=== PATIENT | male | born 1940 ===

== ENCOUNTER 2016-07-25 14:15 | Emergency (ER) | payer MEDICARE, OTHER ==
[2016-07-25 13:36] LABS: URINE BILIRUBIN NEGATIVE (NEG); URINE BLOOD NEGATIVE (NEG); URINE GLUCOSE (UA) NEGATIVE (NEG); URINE KETONE NEGATIVE (NEG); URINE LEUKOCYTE ESTERASE NEGATIVE (NEG); URINE NITRITE NEGATIVE (NEG); URINE PROTEIN NEGATIVE (NEG)
[2016-07-25 13:37] LABS: URINE APPEARANCE CLEAR; URINE COLOR YELLOW
[2016-07-25 13:42] LABS: URINE EPITHELIAL CELLS 0-2 /[HPF] (0-10); URINE RBC 0-3 /[HPF] (0-5); URINE WBC 0-1 /[HPF] (0-5)
[~2016-07-25 14:15] MED LIST: ALPRAZOLAM0.25 M3 PO; AMLODIPINE-BEN1 EAC6 PO; ARICEPT5 M1 PO; CYMBALTA60 M1 PO; DULCOLAX STOOL100 M1 PO; FLUOXETINE HCL10 M1 PO; GABAPENTIN300 M1 PO; HYDROCHLOROTH12.5 M3 PO; LOTREL 5-20 MG1 EACH PO; MICROZIDE12.5 M1 PO; NEURONTIN300 M1 PO; OMEPRAZOLE20 M3 PO; PRAVACHOL40 M1 PO; PRAVASTATIN SOD20 M1 PO; REFRESH P.M. O3.5 G2 OP; RYTARY ER 48.71 EACH PO; SINEMET 25-1001 EAC1 PO; TRAMADOL HCL50 M2 PO; ULTRAM50 M1 PO; VITAMIN B12; VITAMIN D31000 UNI3 PO; ZOFRAN
== END 2016-07-25 14:30 ==
LOC: EDMED 14:15
PROVIDERS: Physician Assistant
DX: M54.5 Low back pain (principal); K59.00 Constipation, unspecified; I10 Essential (primary) hypertension; G20 Parkinson's disease; Z79.899 Other long term (current) drug therapy

== ENCOUNTER 2016-07-28 11:27 | Emergency (ER) | payer MEDICARE, OTHER ==
[2016-07-28 13:12] LABS: BASO % 0.1 % (0-2); EOS % 1.2 % (0-7); EOSINOPHIL ABSOLUTE COUNT 0.1 tho/cmm (0.0-0.7); HCT-HEMATOCRIT 32.9 % (36.0-53.5); HGB-HEMOGLOBIN 11.4 gm/dl (13.5-17.0); IMMATURE GRANULOCYTES ABSOLUTE 0.02 tho/cmm (0-0.03); IMMATURE GRANULOCYTES PERCENT 0.3 % (0-0.3); LYMPH % 13.5 % (20-45); MCHC MEAN CORPUSCULAR HGB CONC 34.7 % (32.0-36.0); MCV (MEAN CELL VOLUME) 83.7 fl (82.0-96.0); MONO % 14.1 % (0-12); NEUTROPHIL ABSOLUTE COUNT 5.2 tho/cmm (1.6-8.0); NEUTROPHIL-AUTOMATED 5.2 tho/cmm (1.6-8.0); NEUTROPHILS % 70.8 % (40-80); RED BLOOD COUNT 3.93 mil/cmm (4.40-5.70); WHITE BLOOD COUNT 7.4 tho/cmm (4.0-10.0)
[2016-07-28 14:48] LABS: PLATELET COUNT 86 tho/cmm (150-450)
[2016-07-28 14:51] LABS: ALB/GLOB RATIO 0.8 (0.8-2.0); ALBUMIN 3.4 g/dl (3.5-5.0); ALKALINE PHOSPHATASE 82 U/L (33-138); ALT/SGPT 9 U/L (12-78); ANION GAP 12 mmol/L (0-20); AST/SGOT 16 U/L (10-40); BLOOD UREA NITROGEN 22 mg/dl (6-24); C-REACTIVE PROTEIN 4.2 mg/dl (0-0.9); CALCIUM 8.5 mg/dl (8.5-10.5); CARBON DIOXIDE-VENOUS 28 mmol/L (22-32); CHLORIDE 101 mmol/l (96-110); CREATININE 1.12 mg/dl (0.60-1.30); GLUCOSE 90 mg/dL (70-110); LIPASE 104 U/L (73-393); POTASSIUM 4.1 mmol/L (3.7-5.1); SODIUM 137 mmol/L (135-145); eGFR VALUE FOR BLACK 75 mL/Min
[2016-07-28 15:22] LABS: URINE APPEARANCE CLEAR; URINE BILIRUBIN NEGATIVE (NEG); URINE BLOOD NEGATIVE (NEG); URINE COLOR YELLOW; URINE GLUCOSE (UA) NEGATIVE (NEG); URINE KETONE NEGATIVE (NEG); URINE LEUKOCYTE ESTERASE NEGATIVE (NEG); URINE NITRITE NEGATIVE (NEG); URINE PROTEIN NEGATIVE (NEG)
== END 2016-07-28 17:01 ==
LOC: EDMED 11:27
PROVIDERS: Emergency Medicine
DX: K59.00 Constipation, unspecified (principal); M54.5 Low back pain; G20 Parkinson's disease; I10 Essential (primary) hypertension; Z79.899 Other long term (current) drug therapy; Z87.891 Personal history of nicotine dependence; Z90.89 Acquired absence of other organs
CPT/HCPCS: J2270; J7030; Q9967